=== PATIENT | female | born 1995 | race African-American/Black ===

== ENCOUNTER 2018-06-19 10:03 | Emergency (ER) | payer MEDICAID ==
[~2018-06-19] VITALS: Ht 162.6 cm; Wt 87.8 kg
[2018-06-19 10:58] VITALS: BP 142/97
== END 2018-06-19 11:01 | disposition home or self-care (01) ==
LOC: ED 10:50
DX: K08.89 Other specified disorders of teeth and supporting structures (principal); F17.200 Nicotine dependence, unspecified, uncomplicated
CPT/HCPCS: 99283

== ENCOUNTER 2018-07-04 18:54 | Emergency (ER) | payer MEDICAID ==
[~2018-07-04] VITALS: Ht 165.1 cm; Wt 86.4 kg
[2018-07-04 19:58] LABS: HCG UR SG 1.035 (1.003-1.030)
[2018-07-04 19:59] LABS: CULTURE INDICATED? YES; MICROSCOPIC INDICATED
== END 2018-07-04 20:37 | disposition home or self-care (01) ==
LOC: ED 20:25
DX: K01.1 Impacted teeth (principal); R10.30 Lower abdominal pain, unspecified
CPT/HCPCS: 81001; 81025; 87086; 99284

== ENCOUNTER 2018-07-06 09:36 | Emergency (ER) | payer MEDICAID ==
[~2018-07-06] VITALS: Ht 165.1 cm; Wt 85.8 kg
[2018-07-06 09:39] VITALS: BP 128/83
[2018-07-06] MEDS ORDERED: HYDROcodone/APAP 5/325 TABLET ONE (10:28)
[2018-07-06] MEDS ORDERED: HYDROcodone/APAP 5/325 TABLET PO ONE (10:30)
== END 2018-07-06 10:40 | disposition home or self-care (01) ==
LOC: ED 10:35
DX: K01.1 Impacted teeth (principal)
CPT/HCPCS: 99283

== ENCOUNTER 2018-09-12 11:53 | Emergency (ER) | payer MEDICAID ==
[~2018-09-12] VITALS: Ht 167.6 cm; Wt 90.6 kg
[2018-09-12] MEDS ORDERED: MAALOX/HYOSCYAMINE/LIDOCAINE 45 ML BTL ONE (12:24)
[2018-09-12] MEDS ORDERED: MAALOX/HYOSCYAMINE/LIDOCAINE 45 ML BTL PO ONE (12:30)
[2018-09-12 12:41] LABS: HCG UR SG 1.024 (1.003-1.030)
[2018-09-12 12:49] LABS: ALANINE AMINOTRANSFERASE 26 U/L (12-78); ALBUMIN 3.9 g/dL (3.4-5.0); ANION GAP 9 mmol/L (5-15); CALCIUM 8.8 mg/dL (8.5-10.1); CHLORIDE 109 mmol/L (98-107); CREATININE 0.69 mg/dL (0.55-1.02)
[2018-09-12 12:51] LABS: ALKALINE PHOSPHATASE 45 U/L (45-117); BILIRUBIN,TOTAL 0.4 mg/dL (0.2-1.0); TOTAL PROTEIN 8.3 g/dL (6.4-8.2)
[2018-09-12 13:03] LABS: BASOPHILS # (AUTO) 0.07 x10^3/uL (0-0.1); BASOPHILS % (AUTO) 1 % (0-1); EOSINOPHILS # (AUTO) 0.33 x10^3/uL (0-0.4); EOSINOPHILS % (AUTO) 6 % (1-7); LYMPHOCYTES # (AUTO) 2.49 x10^3/uL (1-3.4); LYMPHOCYTES % (AUTO) 43 % (22-44); MD NO; MEAN CORPUSCULAR HGB CONC 32.7 g/dL (32.4-35.8); MEAN CORPUSCULAR VOLUME 79.5 fL (80-100); MEAN PLATELET VOLUME 8.1 fL (7.4-10.4); MONOCYTES # (AUTO) 0.29 x10^3/uL (0.2-0.8); MONOCYTES % (AUTO) 5 % (2-9); NEUTROPHILS # (AUTO) 2.64 x10^3/uL (1.8-6.8); NEUTROPHILS % (AUTO) 45 % (42-75); PLATELET COUNT 339 x10^3/uL (130-400); RED BLOOD COUNT 4.96 x10^6/uL (3.82-5.3); RED CELL DISTRIBUTION WIDTH 15.4 % (9.6-15.2)
[2018-09-12 13:03] LABS: CULTURE INDICATED? NO; MICROSCOPIC NOT IND
[2018-09-12 14:30] VITALS: BP 126/71
== END 2018-09-12 14:32 | disposition home or self-care (01) ==
LOC: ED 12:54
DX: R10.9 Unspecified abdominal pain (principal)
CPT/HCPCS: 36415; 74018; 80053; 81003; 81025; 83690; 85025; 99285

== ENCOUNTER 2019-04-06 18:09 | Emergency (ER) | payer MEDICAID ==
[~2019-04-06] VITALS: Ht 165.1 cm; Wt 91.2 kg
[2019-04-06 18:17] VITALS: BP 120/73
--- NOTE | 2019-04-06 18:54 | NUR ---
pt to [place] via [facility]
[2019-04-06 18:58] LABS: ALBUMIN 3.9 g/dL (3.4-5.0); ANION GAP 8 mmol/L (5-15); CALCIUM 9.1 mg/dL (8.5-10.1); CHLORIDE 108 mmol/L (98-107); CREATININE 0.56 mg/dL (0.55-1.02)
[2019-04-06 19:03] LABS: BASOPHILS # (AUTO) 0.07 x10^3/uL (0-0.1); BASOPHILS % (AUTO) 1 % (0-1); EOSINOPHILS # (AUTO) 0.15 x10^3/uL (0-0.4); EOSINOPHILS % (AUTO) 2 % (1-7); LYMPHOCYTES # (AUTO) 2.04 x10^3/uL (1-3.4); LYMPHOCYTES % (AUTO) 29 % (22-44); MD NO; MEAN CORPUSCULAR HEMOGLOBIN 26.4 pg (27.0-34.8); MEAN CORPUSCULAR HGB CONC 33.5 g/dL (32.4-35.8); MEAN CORPUSCULAR VOLUME 78.8 fL (80-100); MEAN PLATELET VOLUME 7.6 fL (7.4-10.4); MONOCYTES % (AUTO) 6 % (2-9); NEUTROPHILS # (AUTO) 4.37 x10^3/uL (1.8-6.8); NEUTROPHILS % (AUTO) 62 % (42-75); PLATELET COUNT 330 x10^3/uL (130-400); RED BLOOD COUNT 4.77 x10^6/uL (3.82-5.3); RED CELL DISTRIBUTION WIDTH 14.8 % (9.6-15.2)
[2019-04-06 19:10] LABS: MICROSCOPIC AUTO
--- NOTE | 2019-04-06 19:10 | NUR ---
report of pt from [facility]. pt is in us at this time.
[2019-04-06 19:20] LABS: CULTURE INDICATED? YES
--- NOTE | 2019-04-06 19:49 | NUR ---
pt d/c with d/c summary and scripts. pt questions answered. pt ambulates to registration desk with steady gait for d/c home. pt denies any other needs pertaining to this visit. pt ambulates to registration desk with steady gait for d/c home with family.
== END 2019-04-06 19:52 | disposition home or self-care (01) ==
LOC: ED 19:40
DX: O21.9 Vomiting of pregnancy, unspecified (principal); R51 Headache; R10.0 Acute abdomen; Z87.891 Personal history of nicotine dependence; Z3A.13 13 weeks gestation of pregnancy
CPT/HCPCS: 36415; 76801; 80048; 81001; 82040; 84702; 85025; 87086; 99284

== ENCOUNTER 2021-07-05 18:44 | Emergency (ER) | payer MEDICAID ==
[~2021-07-05] VITALS: Ht 167.6 cm; Wt 103.8 kg
[2021-07-05 19:26] LABS: BASOPHILS % (AUTO) 1 % (0-1); EOSINOPHILS % (AUTO) 3 % (1-7); LYMPHOCYTES % (AUTO) 53 % (22-44); MEAN CORPUSCULAR HEMOGLOBIN 25.5 pg (27.0-34.8); MEAN CORPUSCULAR HGB CONC 33.1 g/dL (32.4-35.8); MEAN PLATELET VOLUME 7.7 fL (7.4-10.4); MONOCYTES % (AUTO) 5 % (2-9); NEUTROPHILS % (AUTO) 39 % (42-75); PLATELET COUNT 346 x10^3/uL (130-400); RED BLOOD COUNT 5.52 x10^6/uL (3.82-5.3); RED CELL DISTRIBUTION WIDTH 15.4 % (9.6-15.2)
[2021-07-05 19:36] LABS: ALBUMIN 4.2 g/dL (3.4-5.0); ANION GAP 7 mmol/L (5-15); CALCIUM 9.2 mg/dL (8.5-10.1); CHLORIDE 106 mmol/L (98-107); CREATININE 0.83 mg/dL (0.55-1.02)
[2021-07-05 19:37] VITALS: BP 132/87
--- NOTE | 2021-07-05 19:37 | NUR ---
PT AMBULATORY TO ROOM 19 W/ C/O NASUEA WHEN SHES ABOUT TO EAT AND LOSS OF APPETITE WELL FEVERS AND CHILLS. PT DENIES COUGH/CONGESTION/RHINITIS. PT RESTING ON GURNEY. NADN. MONITORS APPLIED. VSS. WARM BLANKET PROVIDED. CALL LIGHT IN REACH.
--- NOTE | 2021-07-05 19:51 | NUR ---
PT CHART REVIEWED AND PLACED FOR RECHECK.
== END 2021-07-05 20:31 | disposition home or self-care (01) ==
LOC: ED 19:15
DX: J06.9 Acute upper respiratory infection, unspecified (principal); Z20.822 Contact with and (suspected) exposure to COVID-19; B34.9 Viral infection, unspecified; R53.1 Weakness
CPT/HCPCS: 36415; 71045; 80048; 82040; 84703; 85025; 99284; U0003; U0005